=== PATIENT | male | born 1995 | race Caucasian/White ===

== ENCOUNTER 2020-04-10 22:07 | Emergency (ER) | payer OTHER ==
[2020-04-11] MEDS ORDERED: KETOROLAC 15 MG/ML 1 ML VIAL IM STA (00:27)
[2020-04-11] MEDS ORDERED: ORPHENADRINE 30 MG/ML 2 ML VIAL IM STA (00:27)
--- NOTE | 2020-04-11 00:41 | ED ---
General Adult HPI - General Chief complaint: Back Pain/Injury Stated complaint: [facility] Back Injury Time Seen by Provider: 04/10/20 23:35 Source: patient Mode of arrival: ambulatory Limitations: no limitations - History of Present Illness Initial comments: 24-year-old male presents to the emergency department tonight with complaints of low back pain that radiates down his left leg. Patient states he injured his back on April 05 while bending over to lift a crate that weighed approximately 8-10 pounds. Patient reports that he felt a popping sensation in his low back. Patient now has persistent pain that worsens with position changes, difficulty with ambulation, and some weakness in the left leg. Also complains of frequent throbbing headache since injury. Denies numbness and tingling in the lower extremities and loss of bowel or bladder control. Patient denies any recent rash, fever, chills, cough, shortness of breath, chest pain, abdominal pain, nausea, vomiting, diarrhea, constipation, dizziness, hematuria, dysuria, urinary urgency, urinary frequency, visual changes, or any other complaints. - Related Data Previous Rx's Medication Instructions Recorded Cyclobenzaprine [Flexeril] 10 mg PO TID #15 tab 04/11/20 Ibuprofen [Motrin] 600 mg PO Q8HR PRN #30 tab 04/11/20 Lidocaine 5% Patch [Lidoderm] 1 patch TOPICAL DAILY #30 patch 04/11/20 Allergies Allergy/AdvReac Type Severity Reaction Status Date / Time No Known Allergies Allergy Verified 04/10/20 22:28 Review of Systems ROS Statement: Those systems with pertinent positive or pertinent negative responses have been documented in the HPI. ROS Other: All systems not noted in ROS Statement are negative. Past Medical History Past Medical History: No Reported History History of Any Multi-Drug Resistant Organisms: None Reported Past Surgical History: No Surgical Hx Reported Past Psychological History: No Psychological Hx Reported Smoking Status: Current every day smoker Past Alcohol Use History: None Reported Past Drug Use History: None Reported General Exam Limitations: no limitations General appearance: alert, in no apparent distress, other (this is a well-developed, well-nourished in no acute distress. Patient presents with the following vital signs: temperature 98.7F, pulse 108, respirations 18, blood pressure 124/87, pulse ox 99% on room air) Neck exam: Present: normal inspection, full ROM. Absent: tenderness, meningismus, lymphadenopathy Respiratory exam: Present: normal lung sounds bilaterally. Absent: respiratory distress, wheezes, rales, rhonchi, stridor Cardiovascular Exam: Present: regular rate, normal rhythm, normal heart sounds. Absent: systolic murmur, diastolic murmur, rubs, gallop, clicks GI/Abdominal exam: Present: soft, normal bowel sounds. Absent: distended, tenderness, guarding, rebound, rigid Extremities exam: Present: normal inspection, full ROM, normal capillary refill, other (Skin to the lower extremities is pink, warm, dry. Cap refills less than 3 seconds. Pedal and posttibial pulses are 2+ and equal bilaterally). Absent: tenderness, pedal edema, joint swelling, calf tenderness Back exam: Present: normal inspection, tenderness (complaints of tenderness with palpation of the lumbar spine), paraspinal tenderness (reports tenderness with palpation on the left paralumbar region) Neurological exam: Present: alert, oriented X3, CN II-XII intact Psychiatric exam: Present: normal affect, normal mood Skin exam: Present: warm, dry, intact, normal color. Absent: rash Course Vital Signs 04/10/20 04/11/20 22:23 01:17 Temperature 98.7 F 98.9 F Pulse Rate 108 H 65 Respiratory 18 16 Rate Blood Pressure 124/73 142/71 O2 Sat by Pulse 99 99 Oximetry Medical Decision Making - Medical Decision Making 24-year-old male patient presents to the emergency department today for eval uation of low back pain. On 04/05 he had injury while at work and the pain seems to be worsening. Also reporting increased weakness to the lower extremities especially on the left. He denies any saddle anesthesia or loss of bowel or bladder control. Denies numbness or tingling to the lower extremities. CT of the lumbar spine was obtained and did show small posterior disc herniations at L4 to 5 and L5 to S1. He did receive anti-inflammatory and muscle relaxer while in the emergency department. Upon reevaluation he does report improvement of symptoms. I did discuss findings and results with the patient. He will be discharged with prescriptions for ibuprofen, Flexeril, and Lidoderm patches. He'll be instructed to follow-up with the business development specialist for further evaluation as soon as possible. He is instructed to follow-up with his primary care physician for recheck in 1-2 days. Return parameters were discussed in detail. He verbalizes understanding and agrees with this plan. - Radiology Data Radiology results: report reviewed, image reviewed CT lumbar spine without contrast was obtained. Report was reviewed in its entirety. Impression by Dr. Ann shows small posterior disc herniations at L4 to 5 and L5 to S1. No fracture. No spinal stenosis. Disposition Clinical Impression: Herniation of intervertebral disc between L4 and L5, Herniation of intervertebral disc between L5 and S1, Acute low back pain Disposition: HOME SELF-CARE Condition: Good Instructions (If sedation given, give patient instructions): Lumbar Disc Herniation (ED), Acute Low Back Pain (ED) Additional Instructions: Take medications as directed. Follow-up with your primary care physician for recheck in 1-2 days. Follow-up with business development specialist for further evaluation as soon as possible. Return to the emergency department immediately for any new, worsening, or concerning symptoms, specifically if you lose bowel or bladder control, develop numbness or tingling around the thighs or groin, or are unable to ambulate. Prescriptions: Cyclobenzaprine [Flexeril] 10 mg PO TID #15 tab Lidocaine 5% Patch [Lidoderm] 1 patch TOPICAL DAILY #30 patch Ibuprofen [Motrin] 600 mg PO Q8HR PRN #30 tab PRN Reason: Pain Is patient prescribed a controlled substance at d/c from ED?: No Referrals: Tori Sykes MD [Primary Care Provider] - 1-2 days Alka Wooten DO [Doctor of Osteopathic Medicine] - 1-2 days Time of Disposition: 01:33
--- NOTE | 2020-04-11 01:23 | CT ---
EXAMINATION TYPE: CT lumbar spine wo con DATE OF EXAM: 04/11/2020 COMPARISON: None HISTORY: Lower Back Pain CT DLP: 607.80 mGycm Automated exposure control for dose reduction was used. Images were obtained from the level of T12-S2 vertebra without contrast. Lumbar vertebra have normal spacing and alignment. There is small posterior disc herniation at L4-5 a nd L5-S1 without significant compromise of the spinal canal. The neural foramina appear widely patent . There is no compression fracture. Posterior elements are intact. Sacroiliac joints appear intact. T here is no lumbar paraspinal mass. I see no bony destructive process. IMPRESSION: Small posterior disc herniations at L4-5 and L5-S1. No fracture. No spinal stenosis.
[2020-04-11 01:27] VITALS: BP 142/71; PULSE 65; RESP 16; TEMP 98.9
[2020-04-11] MEDS ORDERED: LIDOCAINE 5% PATCH TOPICAL STA (01:36)
== END 2020-04-11 01:59 | disposition home or self-care (01) ==
LOC: EC 22:07
DX: M51.26 Other intervertebral disc displacement, lumbar region (principal); M51.27 Other intervertebral disc displacement, lumbosacral region; R51 Headache; F17.200 Nicotine dependence, unspecified, uncomplicated; X50.0XXA Overexertion from strenuous movement or load, initial encounter; Y99.0 Civilian activity done for income or pay; Y92.69 Other specified industrial and construction area as the place of occurrence of the external cause
CPT/HCPCS: 72131; 99284; 96372 ×2; J2360; J1885

== ENCOUNTER → 2020-05-23 | Outpatient (CLI) | payer OTHER ==
--- NOTE | 2020-05-23 22:35 | MR ---
EXAMINATION TYPE: MR lumbar spine wo con DATE OF EXAM: 05/23/2020 COMPARISON: Lumbar spine x-ray April 21, 2020. CT lumbar spine April 11, 2020. HISTORY: Low back pain into left leg TECHNIQUE: Multiplanar, multisequence imaging of the lumbar spine is performed without IV contrast. FINDINGS: Sagittal images of the lumbar spine show vertebral body heights and alignment to appear sta ble and straightened. The intervertebral discs demonstrate disc desiccation L4-L5 and L5-S1 levels. Disc space heights are maintained. Increased signal consistent with annular tear noted posteriorly at L5-S1 level. The conus medullaris is normal in position and signal ending superior L1 level. The rosa ne marrow signal intensity is within normal limits. Axial images show the T12-L1, L1-L2, L2-L3, and L3-L4 levels all to appear within normal limits. Axial images at the L4-L5 level show focal left paracentral disc protrusion mildly facing anterolater al thecal sac on axial image 8, bilateral neural foramina are patent. Axial images at L5-S1 level show mild facet arthropathy bilaterally. There is focal central disc prot rusion but the spinal canal is preserved. Bilateral neural foramina are patent. No suspicious incidental retroperitoneal findings are present. IMPRESSION: Straightening of lumbar spine with mild multilevel degenerative changes lower lumbar leve ls as detailed above.
== END | disposition home or self-care (01) ==
LOC: RADMRIMAIN 13:41
PROVIDERS: ATTEND Orthopaedic Surgery
DX: M47.816 Spondylosis without myelopathy or radiculopathy, lumbar region (principal); M53.86 Other specified dorsopathies, lumbar region
CPT/HCPCS: 72148

== ENCOUNTER 2020-10-06 10:03 | Day surgery (SDC) | payer OTHER ==
[~2020-10-06 10:03] MED LIST: LACTATED RINGERS 1,000 ML IV SCH
[2020-10-06 10:15] VITALS: TEMP 98.6
[2020-10-06] MEDS ORDERED: IOPAMIDOL M200 10 ML VIAL ONE (10:22)
[2020-10-06] MEDS ORDERED: DEXAMETHASONE SOD PHOSPHATE 10 MG/ML 1 ML VIAL ONE (10:22)
--- NOTE | 2020-10-06 10:34 | P.PCN ---
Date of Procedure: 10/06/20 Description of Procedure: PREOPERATIVE DIAGNOSIS: Lumbar radiculopathy POSTOPERATIVE DIAGNOSIS: Lumbar radiculopathy PROCEDURE 1. Transforaminal epidural steroid injection under fluoroscopic guidance at the L5-S1 2. Lumbar epidurogram IMAGING Fluoroscopy was used, images where saved to the medical record ANESTHESIA: Local with 1% lidocaine 5 ml PROCEDURE DESCRIPTION / TECHNIQUE: The patient was seen and identified in the preoperative area. Risks, benefits, complications, and alternatives were discussed with the patient. The patient agreed to proceed with the procedure and signed the consent, vital signs were stable prior to the procedure. Patient was taken to the OR and time out was completed. The patient was placed in the prone position on procedure table and a pillow was placed under the abdomen to reduce lumbar lordosis. The lumbosacral area was prepped and draped in the usual sterile fashion. Vital signs were closely monitored during the procedure. Conscious sedation was used. Using oblique fluoroscopy, the chin of the "Karson dog" at the pedicle and the skin and deeper tissues just below was localized with 1% lidocaine. Subsequently, a 25-gauge 3.5-inch spinal needle was advanced under a tunneled view fluoroscopic guidance just underneath the chin of the "Karson dog". Under lateral fluoroscopy, the needle was then advanced to the posterior border interforaminal space. After negative aspiration of CSF and blood and with no paresthesias, 1 mL of Omnipaque-240 contrast dye was injected excellent epidurogram. Subsequently, a solution totalling 2ml of dexamethasone and PFNS was injected after negative aspiration (total of 10mg of dexamethasone was used). The needle was removed intact. COMPLICATIONS: None DISPOSITION: The patient was placed in a supine position and transferred to the recovery area in a stable condition for observation. There was no evidence of lower extremity motor or sensory deficit after the procedure. Patient was discharged from the recovery room after meeting discharge criteria. Home discharge instructions were given to the patient by the staff. The patient was reexamined prior to discharge. Follow up as directed.
--- NOTE | 2020-10-06 10:43 | FL ---
EXAMINATION TYPE: FL guided pain mgmt statistic DATE OF EXAM: 10/06/2020 HISTORY: Fluoroscopy time 4 seconds of fluoroscopy provided. IMPRESSION: 1. Fluoroscopy time.
[2020-10-06 10:47] VITALS: RESP 20
[2020-10-06 10:57] VITALS: BP 121/57; PULSE 62
--- NOTE | 2020-10-14 08:59 | CDI ---
Outpatient Documentation Clarification Form Date: 10/14/20 CDS/Behavioral Health Consultant Name: Lizabeth Owen Phone: If any questions, call Ale Ward Powert[employer] Control Systems Engineer at [phone] Patient Name: Jonas Moses Admit Date: 10/06/20 Discharge Date: 10/06/20 ATTENTION: The [facility] Coding Staff appreciate your assistance in clarifying documentation. Please respond to the clarification below the line at the bottom and electronically sign. The [facility] Coding staff will review the response and follow-up if needed. Please note: Queries are made part of the Legal Health Record. If you have any questions, please contact the Powertrain Control Systems Engineer. Dear Dr. Washington, In order to code to the highest specificity please clarify the laterality of procedure. Please clarify. Thank you for your kind consideration. Left side L5/S1__ MTDD
== END 2020-10-06 10:57 | disposition home or self-care (01) ==
LOC: ORPAIN 10:03
PROVIDERS: ATTEND Hospitalist
DX: M54.16 Radiculopathy, lumbar region (principal)
CPT/HCPCS: 64483; J1100; Q9966

== ENCOUNTER 2021-09-04 19:27 | Emergency (ER) | payer BC, OTHER ==
[2021-09-04 19:41] VITALS: BP 121/74; RESP 20
[2021-09-04] MEDS ORDERED: IBUPROFEN 600 MG TAB PO STA (20:41)
[2021-09-04 21:50] LABS: Appearance,Urine Clear (Clear); Bilirubin,Urine Negative (Negative); Blood,Urine Negative (Negative); Color,Urine Light Yellow; Glucose,Urine (UA) Negative (Negative); Ketones,Urine Negative (Negative); Leukocyte Esterase,Urine Negative (Negative); Nitrite,Urine Negative (Negative); Protein,Urine Negative (Negative); Specific Gravity,Urine 1.014 (1.001-1.035); Urobilinogen,Urine <2.0 mg/dL (<2.0)
--- NOTE | 2021-09-04 21:58 | ED ---
General Adult HPI - General Chief complaint: Back Pain/Injury Stated complaint: [facility]-Back Pain Time Seen by Provider: 09/04/21 20:29 Source: patient, RN notes reviewed Mode of arrival: ambulatory Limitations: no limitations - History of Present Illness Initial comments: 25-year-old male presents to the emergency department for evaluation of low back pain, onset this evening. Patient states he has a history of low back pain and has known degenerative disc disease. States he has received steroid injections in his back in the past due to this pain. Patient states this discomfort began this evening while at work. Reports he was maneuvering around a part at work and was bending awkwardly when the pain became more noticeable. Patient states the pain spreads across the lower back and extends into left hip. Patient denies saddle anesthesia, loss of bowel or bladder control, lower extremity weakness, or foot-drop. Incidentally, patient was found to be febrile upon arrival. When this was discussed, he does report body aches and possible Covid exposure at work. Denies cough, congestion, chest pain, shortness of breath, difficulty breathing, or GI symptoms. - Related Data Previous Rx's Medication Instructions Recorded Ibuprofen [Motrin] 600 mg PO Q8HR PRN #30 tab 09/04/21 predniSONE 50 mg PO DAILY #5 tab 09/04/21 Allergies Allergy/AdvReac Type Severity Reaction Status Date / Time No Known Allergies Allergy Verified 09/04/21 20:39 Review of Systems ROS Statement: Those systems with pertinent positive or pertinent negative responses have been documented in the HPI. ROS Other: All systems not noted in ROS Statement are negative. Past Medical History Past Medical History: No Reported History Additional Past Medical History / Comment(s): DDD-lumbar History of Any Multi-Drug Resistant Organisms: None Reported Past Surgical History: Orthopedic Surgery Additional Past Surgical History / Comment(s): finger surgery Past Anesthesia/Blood Transfusion Reactions: No Reported Reaction Past Psychological History: No Psychological Hx Reported Smoking Status: Current every day smoker Past Alcohol Use History: None Reported Past Drug Use History: None Reported General Exam Limitations: no limitations (Well-developed, well-nourished male in no acute distress. Initial temperature 102.1, pulse 114, respirations 20, blood pressure 121/74, pulse ox 99% on room air) General appearance: alert, in no apparent distress Neck exam: Present: normal inspection, full ROM. Absent: tenderness, meningismus, lymphadenopathy Respiratory exam: Present: normal lung sounds bilaterally. Absent: respiratory distress, wheezes, rales, rhonchi, stridor Cardiovascular Exam: Present: normal rhythm, tachycardia, normal heart sounds. Absent: systolic murmur, diastolic murmur, rubs, gallop, clicks Back exam: Present: normal inspection, full ROM, other (Range of motion intact, patient is able to rotate at the hips and reach forward without difficulty. Does have diffuse lower back discomfort upon palpation though not localized to either side.) Neurological exam: Present: alert, oriented X3, CN II-XII intact Psychiatric exam: Present: normal affect, normal mood Skin exam: Present: warm, dry, intact, normal color Course Vital Signs 09/04/21 09/04/21 19:39 22:25 Temperature 102.1 F H 100.0 F H Pulse Rate 114 H 107 H Respiratory 20 Rate Blood Pressure 121/74 O2 Sat by Pulse 99 96 Oximetry Medical Decision Making - Medical Decision Making 25-year-old male with no significant past medical history presents to the emergency department for evaluation. Upon exam, patient is well-appearing and in no acute distress. He is able to move freely. Does complain of generalized low back pain that he attributed to working in an awkward position this evening. However when made aware of his elevated temperature, patient does endorse more widespread body aches. He was agreeable to a Covid test which did come back positive. Fever and backache are most likely attributed to Covid illness rather than any other sort of infectious process. He was given Motrin for fever and discomfort with improvement. No imaging was done for back pain due as patient is not experiencing any localized area of back pain and does not have any symptoms concerning for cauda equina. Additionally, patient has had no acute injury and has known chronic degenerative condition. Patient is provided a note for work. He he is prescribed an oral steroid and NSAID. Instructed to follow up with his PCP via telephone or video visit. Return parameters were discussed in detail. Patient verbalizes understanding and agrees with this plan. This patient's care was discussed with my attending Dr. Jones. - Lab Data Lab Results 09/04/21 09/04/21 Range/Units 20:57 21:09 Urine Color Light Yellow Urine Appearance Clear (Clear) Urine pH 8.0 (5.0-8.0) Ur Specific [place] 1.014 (1.001-1.035) Urine Protein Negative (Negative) Urine Glucose (UA) Negative (Negative) Urine Ketones Negative (Negative) Urine Blood Negative (Negative) Urine Nitrite Negative (Negative) Urine Bilirubin Negative (Negative) Urine Urobilinogen <2.0 (<2.0) mg/dL Ur Leukocyte Esterase Negative (Negative) Coronavirus (PCR) Detected A (Not Detectd) Disposition Clinical Impression: COVID-19, Back pain Disposition: HOME SELF-CARE Condition: Stable Instructions (If sedation given, give patient instructions): Coronavirus Disease 2019 (COVID-19), Back Pain (ED) Additional Instructions: Alternate Tylenol and Motrin as needed for fever control and pain. Take steroid as prescribed. You should isolate for the next 10 days. You were provided with a work note. Follow-up with your PCP for a recheck in the next 1-2 days. This may need to be done via telephone or video. Return to the emergency department with any new, worsening, or concerning symptoms. Prescriptions: Ibuprofen [Motrin] 600 mg PO Q8HR PRN #30 tab PRN Reason: Pain predniSONE 50 mg PO DAILY #5 tab Is patient prescribed a controlled substance at d/c from ED?: No Referrals: None,Stated [Primary Care Provider] - 1-2 days Time of Disposition: 21:58
[2021-09-04 22:26] VITALS: PULSE 107; TEMP 100
== END 2021-09-04 22:26 | disposition home or self-care (01) ==
LOC: EC 19:27
DX: U07.1 COVID-19 (principal); F17.200 Nicotine dependence, unspecified, uncomplicated
CPT/HCPCS: 81003; 87635